=== PATIENT | female | born 1955 | race Caucasian/White ===

== ENCOUNTER → 2016-10-13 | Outpatient (CLI) | payer BC ==
[~2016-10-13] MED LIST: CLTP PO; CZRUNK; MULT-506 PO
--- NOTE | 2016-10-13 10:11 | DIAGNOSTIC IMAGING REPORT ---
RIGHT SHOULDER MIN 2 VIEWS CLINICAL HISTORY: RIGHT SHOULDER PAIN Right pain COMPARISON: None. DISCUSSION: Mild calcific supraspinatus tendinitis. No evidence for acute bony pathology. No evidence for abnormal depressed reaction. There is no evidence for soft tissue swelling. IMPRESSION: Mild calcific supraspinatus tendinitis. Electronically signed by: Luis F López M.D. 10/13/2016 10:10 AM Dictated Date/Time: 10/13/2016 10:09 AM
== END | disposition home or self-care (01) ==
LOC: C.RDSM 10:00
PROVIDERS: ATTEND Physical Medicine & Rehabilitation Sports Medicine
DX: M75.31 Calcific tendinitis of right shoulder (principal)

== ENCOUNTER → 2017-01-09 | Outpatient (CLI) | payer BC ==
--- NOTE | 2017-01-09 12:53 | DIAGNOSTIC IMAGING REPORT ---
RIGHT FOOT MIN 3 VIEWS ROUTINE CLINICAL HISTORY: Right foot pain status post trauma COMPARISON: None. DISCUSSION: No fractures or dislocations are visualized. There is an Achilles insertional spur. IMPRESSION: No fractures or dislocations identified. Electronically signed by: Shamar Simpson M.D. 01/09/2017 12:52 PM Dictated Date/Time: 01/09/2017 12:51 PM
== END | disposition home or self-care (01) ==
LOC: C.RAD 12:18
PROVIDERS: ATTEND Nurse Practitioner
DX: S99.921A Unspecified injury of right foot, initial encounter (principal); X58.XXXA Exposure to other specified factors, initial encounter

== ENCOUNTER → 2017-03-16 | Outpatient (CLI) | payer BC ==
--- NOTE | 2017-03-18 14:30 | MAMMOGRAPHY REPORT ---
BILATERAL DIGITAL SCREENING MAMMOGRAM TOMOSYNTHESIS WITH CAD: 03/16/2017 CLINICAL HISTORY: Routine screening. TECHNIQUE: Breast tomosynthesis in addition to standard 2D mammography was performed. Current study was also evaluated with a Computer Aided Detection (CAD) system. COMPARISON: Comparison is made to exams dated: 02/25/2016 mammogram, 02/20/2015 mammogram, 02/18/2014 m ammogram, 01/05/2012 mammogram, 02/13/2013 mammogram, and 08/27/2010 mammogram - [facility] nter. BREAST COMPOSITION: There are scattered areas of fibroglandular density in both breasts. FINDINGS: No suspicious masses, calcifications, or areas of architectural distortion are noted in ei ther breast. There has been no significant interval change compared to prior exams. There was an error during acquisition of the right MLO tomosynthesis images, and only a portion of th e tomosynthesis images were obtained (23 images obtained with an expected number of images of approxi mately 70-80). The patient was called and invited to return for repeat tomosynthesis imaging, seven garrido, the patient decided not to return given that the remainder of the images showed no abnormality inc luding the right CC 2-D and tomosynthesis images as well as the right MLO 2-D view. IMPRESSION: ACR BI-RADS CATEGORY 1: NEGATIVE There is no mammographic evidence of malignancy. A 1 year screening mammogram is recommended. The pa tient will receive written notification of the results. Approximately 10% of breast cancers are not detected with mammography. A negative mammographic report should not delay biopsy if a clinically suggestive mass is present. Kasia Palma M.D. ah/:03/17/2017 16:01:05 Home Health Care Coordinator: Daria BRAVO(Flor)(M), [facility] letter sent: Normal 1/2 BI-RADS Code: ACR BI-RADS Category 1: Negative
== END | disposition home or self-care (01) ==
LOC: C.MAMM 10:19
PROVIDERS: ATTEND Obstetrics & Gynecology
DX: Z12.31 Encounter for screening mammogram for malignant neoplasm of breast (principal)

== ENCOUNTER → 2017-06-10 | Outpatient (CLI) | payer BC | END | disposition home or self-care (01) | LOC: C.LABSPEC 17:30 | PROVIDERS: ATTEND Obstetrics & Gynecology | DX: N76.0 Acute vaginitis (principal) ==

== ENCOUNTER → 2017-06-10 | Outpatient (CLI) | payer BC | END | disposition home or self-care (01) | LOC: C.PAPS 10:21 | PROVIDERS: ATTEND Obstetrics & Gynecology | DX: Z01.419 Encounter for gynecological examination (general) (routine) without abnormal findings (principal) ==

== ENCOUNTER → 2018-03-21 | Outpatient (CLI) | payer OTHER ==
--- NOTE | 2018-03-22 13:39 | MAMMOGRAPHY REPORT ---
BILATERAL DIGITAL SCREENING MAMMOGRAM TOMOSYNTHESIS WITH CAD: 03/21/2018 CLINICAL HISTORY: Routine screening. TECHNIQUE: The study was acquired using full field digital technology and interpreted from soft copy. Breast tomosynthesis in addition to standard 2D mammography was performed. Current study was also ev aluated with a Computer Aided Detection (CAD) system. COMPARISON: Comparison is made to exams dated: 03/16/2017 mammogram, 02/25/2016 mammogram, 02/20/2015 m ammogram, 02/18/2014 mammogram, 02/13/2013 mammogram, and 01/05/2012 mammogram - [facility] nter. BREAST COMPOSITION: There are scattered areas of fibroglandular density in both breasts. FINDINGS: There is a 10 mm focal asymmetry in the 6:00 anterior/subareolar right breast, a 6 mm focal asymmetry in the approximate 2:00 to 3:00 middle one third of the right breast, and an 8 mm focal as ymmetry in the 12:00 middle one third of the left breast which could all represent cysts although add itional targeted ultrasound and possible additional mammographic views are recommended. No architectural distortion or cluster of microcalcifications is seen bilaterally. IMPRESSION: ACR BI-RADS CATEGORY 0: INCOMPLETE EVALUATION: NEED ADDITIONAL IMAGING EVALUATION The bilateral focal asymmetries need additional imaging evaluation. The patient will be called to schedule an appointment. Some breast cancers are not detected with mammography. A negative mammographic report should not ramila y biopsy if a clinically suggestive mass is present. Aaliyah Mcdonough M.D. ay/:03/21/2018 15:48:45 Production Team Leader: RT Ernst(Flor)(M), [facility] letter sent: Addl Imaging 0 BI-RADS Code: ACR BI-RADS Category 0: Incomplete Evaluation: Need Additional Imaging Evaluation
== END | disposition home or self-care (01) ==
LOC: C.MAMM 07:22
PROVIDERS: ATTEND Obstetrics & Gynecology
DX: Z12.31 Encounter for screening mammogram for malignant neoplasm of breast (principal); N64.89 Other specified disorders of breast